=== PATIENT | male | born 2000 | race Two or more races ===

== ENCOUNTER 2022-10-22 11:29 | Inpatient (IN) | payer OTHER, SELFPAY ==
[2022-10-22] VITALS (18 sets, daily range): BP systolic 98–137; BP diastolic 61–94; PULSE 68–112; RESP 17–25; TEMP 36.4–37.2; O2SAT 95–100; BMI 26.3; BMI 28.8
--- NOTE | 2022-10-22 11:29 | ECG_ITS ---
APPROVED REPORT Exam: Resting ECG HR:77 bpm ECG Measurements Heart Rate 77 AXES NJ 130 P 4 QRSd 88 QRS 61 QT 358 T 37 QTc 390 Conclusion SINUS RHYTHM WITH SINUS ARRHYTHMIA EARLY REPOLARIZATION [ST ELEVATION WITH NORMALLY INFLECTED T-WAVE] BORDERLINE ECG UNCONFIRMED REPORT Electronically signed by : Kailash Bowen MD 10/23/2022 20:30:52
--- NOTE | 2022-10-22 11:53 | XR_ITS ---
FINAL REPORT TECHNIQUE: Single view chest CLINICAL HISTORY: Midsternal CHEST PAIN FINDINGS: A single view of the chest was obtained. The heart and mediastinum are within normal limits. Lung volumes are low. The lungs are clear. There is no pneumothorax. Osseous structures are unremarkable. IMPRESSION: No acute cardiopulmonary process. Reviewed, Interpreted and Dictated by Marcie Shultz MD Transcribed by Yajaira Uriarte Authenticated and [facility]
[2022-10-22 12:00] LABS: Basophils # 0.1 K/mm3 (0-0.2); Basophils % 0.4 % (0.1-2.0); Chloride 103 mmol/L (98-107); Eosinophils # 0.4 K/mm3 (0.0-0.4); Eosinophils % 3.5 % (0.1-12.0); Hematocrit 41.9 % (42.0-52.0); Hemoglobin 14.3 g/dL (14.1-18.0); Lymphocytes % 8.8 % (10-50); Mean Corpuscular HGB Conc 34.2 g/dL (31.8-35.4); Mean Corpuscular Hemoglobin 30.9 pg (27.0-31.2); Mean Corpuscular Volume 90.5 fl (80-94); Mean Platelet Volume 7.5 fl (7.4-10.4); Monocytes # 0.6 K/mm3 (0.1-1.0); Monocytes % 5.1 % (1.7-9.3); Neutrophils # 9.2 K/mm3 (1.8-7.8); Neutrophils % 82.1 % (37.0-80.0); Platelet Count 310 K/mm3 (142-424); Red Blood Count 4.63 M/mm3 (4.60-6.20); Red Cell Distribution Width 13.2 % (11.5-17.5); White Blood Count 11.2 K/mm3 (4.5-13.0)
[2022-10-22 12:01] LABS: Potassium 3.7 mmoL/L (3.5-5.1); Sodium 138 mmol/L (136-145)
[2022-10-22 12:03] LABS: Amylase 50 U/L (30-110)
[2022-10-22 12:04] LABS: Anion Gap 13.7 mEq/L (5-15); Blood Urea Nitrogen 15 mg/dl (9-20); Calcium 8.8 mg/dl (8.4-10.2); Carbon Dioxide 25 mmol/L (22.0-30.0); Creatinine Clearance Estimated 146 mL/min (50-200); Estimated Glomerular Filt Rate 123 ml/min (>60); GFR (African American) 149 ML/MIN (>60); Glucose 154 mg/dl (74-100); Lipase 26 U/L (23-300)
[2022-10-22 12:46] LABS: Troponin I 8.83 ng/ml (0.00-0.034)
--- NOTE | 2022-10-22 12:47 | PC.NURSE ---
CRITICAL TROP 8.83, RECEIVED FROM ANTOLIN IN LAB. PT NAME AND R/V. DR MASTERS NOTIFIED AT THIS TIME
[2022-10-22 13:00] LABS: Coronavirus 19, PCR Not Detected (NotDetected); Influenza A, PCR Not Detected (NotDetected); Influenza B, PCR Not Detected (NotDetected)
--- NOTE | 2022-10-22 13:06 | HMH.EDCP ---
Discharge Plan Disposition Patient Disposition: Admitted As Inpatient Condition: Fair Prescriptions Prescriptions: No Action No Known Home Medications Referrals Follow up/Referrals: Provider,Referral, [Primary Care Provider] - See instructions Discharge ED Provider: Jhon Mei Chest Pain HPI General Chief Complaint: Chest Pain Stated Complaint: chest pain Time Seen by Provider: 10/22/22 12:58 Mode of Arrival: Ambulatory Source of Information: Patient Limitations: No Limitations Description of Symptoms (Recalled from ER Triage Doc. by RN): pt states since saturday he has had nausea, vomiting, chest pain, dizziness, and had a near syncopal episode, denies fever, states chest pain is in the center of his chest and radiates down his l arm, also reports back pain History of Present Illness HPI narrative: Patient presents with chest pain that began approximate 930 this morning. He also complains of some associated back discomfort that he had earlier in the day. He denies exacerbating or alleviating symptoms he does note associated dyspnea and diaphoresis and vomiting. He describes pain presently as a 7. Related Data Home Medications Medication Instructions Recorded Confirmed No Known Home Medications 10/22/22 10/22/22 Allergies Allergy/AdvReac Type Severity Reaction Status Date / Time No Known Allergies Allergy Verified 10/22/22 11:52 [facility] Disclaimer: The information contained in this section may have been updated after the patient was seen, as this information can be updated by other users. Medical History (Updated 10/22/22 @ 15:02 by Anita Montanez APRN) Chest pain Elevated troponin Myocarditis Pericarditis Social History (Updated 10/22/22 @ 14:02 by Anita Montanez APRN) Smoking Status: Never smoker alcohol intake: current current occupational status: other Travel in the last 8 weeks: None ROS Obtained: Yes All systems reviewed & no additional complaints except as documented Physical Exam General General appearance: alert and in no apparent distress Head Head exam: atraumatic, normocephalic and normal inspection Eye Eye exam: Present normal appearance, PERRL and EOMI ENT ENT exam: Present normal exam, normal oropharynx, mucous membranes moist, TM's normal bilaterally and normal external ear exam Neck Neck exam: Present normal inspection, full ROM and trachea midline; Absent meningismus or lymphadenopathy Chest Chest inspection: Present other (Mild reproducible chest wall tenderness) Respiratory Respiratory exam: Present normal lung sounds bilaterally; Absent respiratory distress Cardiovascular Cardiovascular exam: Present regular rate and normal rhythm; Absent JVD Abdominal Exam Abdominal exam: Present soft and normal bowel sounds; Absent distention, tenderness or guarding Extremities Exam Extremities exam: Present normal inspection, full ROM and normal capillary refill; Absent calf tenderness Back Exam Back exam: Present normal inspection; Absent tenderness Neurological Exam Neurological exam: Present alert and oriented X3 Psychiatric Psychiatric exam: Present normal affect and normal mood Skin Skin exam: Present warm, dry, intact and normal color Lymphatic Lymphatic Findings: no adenopathy Medical Decision Making Medical Records Medical records reviewed: Yes I reviewed the patient's medical records. Jonny Inquiry Pt receiving controlled substance: No Vital Signs: 10/22/22 11:35 10/22/22 12:05 10/22/22 12:00 Temperature 97.6 F Temperature Source Oral Pulse Rate 74 94 H Pulse Rate [Left Radial] 74 Respiratory Rate 18 24 Blood Pressure 135/85 Blood Pressure [Right Arm] 131/85 Blood Pressure Mean 98 Blood Pressure Mean [Right Arm] 100 Blood Pressure Source [Right Arm] Automatic Cuff Blood Pressure Position [Right Arm] Sitting 02 Sat by Pulse Oximetry 100 100 Oxygen Delivery Method Room Air 10/22/22 12:30 10/22/22
--- NOTE | 2022-10-22 13:17 | PC.NURSE ---
Anita Montanez was in to see pt
--- NOTE | 2022-10-22 13:43 | CA_ITS ---
APPROVED REPORT EXAM: Comprehensive 2D, Doppler, and color-flow Echocardiogram Net Trainer: Samantha Ayers RVT Ht: 5 ft 4 in Wt: 154lbs BSA: 1.75 BP: 135/85 mmHg Indications: CP,ELEVATED TROP 8.8,NEAR SYNCOPE,DIZZINESS 2D Dimensions IVSd 1.44 cm M: 0.6-1.2 LVEF (Visual) 47.50 % PWd 0.90 cm M: 0.6 - 1.2 LA Volume 24.10 mL LVDd 4.85 cm M: 4.2 - 5.9 LA Volume Index 13.77 mL/m2 (M/F) 16-34 LVDs 3.69 cm M: 2.5 - 4.0 LVOT 2.06 cm (M/F) 1.5-2.5 M-Mode Dimensions RVDd 1.46 cm (0.9-2.6) LA Diam 3.43 cm (1.9-4.0) LVDd 5.50 cm (3.5-5.7) Ao Diam 2.96 cm (2.0-3.7) LVDs 3.82 cm (3.5-5.7) IVSd 1.31 cm (0.6-1.1) PWd 0.61 cm (0.6-1.1) EF (Teich) 57.50% FS 30.50% EDV (Teich) 147.40 mL TAPSE 1.49 (<1.7) ESV (Teich) 62.70 mL LV Diastology E Decel Time 157.00 (160-240 msec) E/A Ratio 1.9 MED E' 9.90 (< 7 cm/sec) E'/MED E' Ratio 9.15 (>14) LAT E' 12.40 (<10 cm/sec) E/LAT E' Ratio 7.31 (>14) Aortic Valve AO Peak GR. 6.20 mmHg Mitral Valve MV E Max Obi. 91.00 (40-130 cm/s) MV A Velocity 49.00 (40-130 cm/s) E/A Ratio 1.86 MV Decel. Time 157.00 (160-240 ms) MV PHT 46.00 ms Pulmonary Valve PV Peak Velocity 85.00 (50-150 cm/s) Left Ventricle Left atrium is normal size, left ventricle is normal size, there is preserved left ventricular systolic function, estimated ejection fraction 55% with no regional wall motion abnormality. Diastolic parameters are within normal range. Right Ventricle Right atrium and right ventricular normal size and contractility. Aortic Valve Aortic valve is grossly normal there is no aortic stenosis aortic insufficiency. Mitral Valve Mitral valve is grossly normal, there is trace mitral regurgitation. Tricuspid Valve Tricuspid grossly normal, there is trace tricuspid regurgitation, tricuspid regurgitation jet plus is inadequate for calculation of the right ventricular systolic pressure. Pulmonic Valve Pulmonic valve is poorly visualized. Great Vessels Aortic root is normal size. Inferior vena cava is normal size with normal inspiratory collapse. Pericardium No significant pericardial effusion noted. Conclusion 1. Normal left ventricular size preserved left ventricular systolic function, estimated ejection fraction 55% with no regional wall motion abnormality, diastolic parameters are within normal range. 2. Trace mitral and tricuspid regurgitation. 3. No significant pericardial effusion noted. 4. Inferior vena cava is normal size with normal inspiratory collapse. Electronically signed by : Jayy Mello MD 10/22/2022 17:47:31
--- NOTE | 2022-10-22 13:48 | EXP.CARD.CON ---
History of Present Illness History of Present Illness Consult date: 10/22/22 Requesting physician: Jhon Mei Consult reason: chest pain Chief complaint: chest History of present illness: This is a 30-year-old gentleman who presented to the emergency department complaints of chest pain. He does have an wire stitcher at bedside who is helping to translate for the patient. He states that he had back pain between his shoulder blades that started on Saturday. He states that this persisted throughout the entire weekend and never resolved. He states that he woke up this morning with sudden onset of chest pain that feels like a stabbing sensation and something is sticking him in the chest. It is in the central aspect of his chest with the associated back pain. He states that sometimes it does radiate down his left arm. It is associated with shortness of breath diaphoresis and clamminess. He denies any nausea or vomiting. The patient rates the pain a 7 out of 10 in intensity. It is worse when he is exerting himself. Nothing is helping to improve the pain. The patient does have an elevated troponin on arrival at the emergency department at 8.83. His EKG does show some diffuse ST elevation but there are no reciprocal changes. He denies any fever, chills, nausea, vomiting, diarrhea, PND or orthopnea. [facility] Disclaimer: The information contained in this section may have been updated after the patient was seen, as this information can be updated by other users. Medical History (Updated 10/22/22 @ 15:02 by Anita Montanez APRN) Chest pain Elevated troponin Myocarditis Pericarditis Social History (Updated 10/22/22 @ 14:02 by Anita Montanez APRN) Smoking Status: Never smoker alcohol intake: current current occupational status: other Travel in the last 8 weeks: None Review of Systems Review of Systems Review of systems:: pertinent systems reviewed and negative unless documented below Constitutional Constitutional: Reports system reviewed and no additional complaints, except as documented Eyes Eyes: Reports system reviewed and no additional complaints, except as documented ENT Ears, Nose, Mouth, and Throat: Reports system reviewed and no additional complaints, except as documented *Cardiovascular Cardiovascular: Reports system reviewed and no additional complaints, except as documented, Reports chest pain, Reports chest pain at rest, Reports chest pain with activity, Reports diaphoresis, Reports dyspnea, Reports dyspnea on exertion and Reports radiating jaw, neck or arm pain *Respiratory Respiratory: Reports system reviewed and no additional complaints, except as documented, Reports dyspnea and Reports dyspnea on exertion *Gastrointestinal Gastrointestinal: Reports system reviewed and no additional complaints, except as documented *Genitourinary Genitourinary: Reports system reviewed and no additional complaints, except as documented *Musculoskeletal Musculoskeletal: Reports system reviewed and no additional complaints, except as documented and Reports back pain Integumentary/Breasts Skin/Breast: Reports system reviewed and no additional complaints, except as documented *Neurologic Neurologic: Reports system reviewed and no additional complaints, except as documented Psychiatric Psychiatric: Reports system reviewed and no additional complaints, except as documented Endocrine Endocrine: Reports system reviewed and no additional complaints, except as documented Hematologic/Lymphatic Hematologic/Lymphatic: Reports system reviewed and no additional complaints, except as documented Allergic/Immunologic Allergic/Immunologic: Reports system reviewed and no additional complaints, except as documented Exam Data for Last 24 hours Vital signs and Labs for Last 24 Hours: Temp Pulse Resp BP Pulse Ox 97.6 F 74 24 135/85 100 10/22/22 11:35 10/22/22 12:05 10/22/22 12:00 10/22/22 12:00 10/22/22 12:00 Laboratory Results - la
--- NOTE | 2022-10-22 13:52 | PC.NURSE ---
vascular at bedside for echo
--- NOTE | 2022-10-22 14:23 | PC.NURSE ---
placed call to [facility] for cardiology
--- NOTE | 2022-10-22 14:23 | PC.NURSE ---
Dr hsu and Anita Montanez here talking dr kate advising to send pt to [facility]
--- NOTE | 2022-10-22 15:04 | PC.NURSE ---
Dr Mei speaking to cardiology at [facility]
--- NOTE | 2022-10-22 15:09 | PC.NURSE ---
NO BEDS AVAILABLE AT PT PLACED ON WAITING LIST.
--- NOTE | 2022-10-22 15:12 | PC.NURSE ---
DR MASTERS SPEAKING TO DR GORMAN
--- NOTE | 2022-10-22 15:28 | PC.NURSE ---
pt put his friend on phone pt was advised of plans for admission until has a bed available
--- NOTE | 2022-10-22 15:35 | PC.NURSE ---
BED ASSIGNMENT REQUESTED, ROOM 216SD, ALL STAFF NOTIFIED
--- NOTE | 2022-10-22 15:35 | PC.NURSE ---
called care management for admission
--- NOTE | 2022-10-22 16:36 | PC.NURSE ---
pt friend brought him some food, pt updated to new plans of trying to get pt transferred [facility]
--- NOTE | 2022-10-22 16:42 | PC.NURSE ---
Dr Mei speaking with [facility]
--- NOTE | 2022-10-22 16:46 | PC.NURSE ---
called [facility] for possible transfer
[2022-10-22 16:49] LABS: Erythrocyte Sedimentation Rate 79 mm/hr (0-15)
--- NOTE | 2022-10-22 16:50 | PC.NURSE ---
placed call to [facility] for cardiology and transfer
--- NOTE | 2022-10-22 17:11 | PC.NURSE ---
[facility] on with dr kate for transfer
--- NOTE | 2022-10-22 17:14 | PC.NURSE ---
Dr Pugh accepting, they do not have a bed at this time they will update
--- NOTE | 2022-10-22 17:40 | PC.NURSE ---
spoke with hospitalist who states he is comfortable with pt moving to step down while awaiting bed placement externally
--- NOTE | 2022-10-22 17:47 | PC.NURSE ---
CALLED REPORT TO SHRUTHI SOSA RN
[2022-10-22 17:53] LABS: C-Reactive Protein 275.8 mg/L (0-4)
--- NOTE | 2022-10-22 18:12 | EXP.HP ---
History of Present Illness *Admission Date: 10/22/22 *Reason for visit:: chest pain *History of present illness: Mr. Rebollar is a 30-year-old gentleman who presented to the emergency department complaints of chest pain. History obtained from ER and cardiology notes as well as from patient with the assistance of an civil engineering drafter. He reports that he has had back pain for the past 3 to 4 days that began between his shoulders. It is persisted through the entire weekend without any resolution. Worse with exertion. Woke up this morning with sudden worsening of chest pain that felt like stabbing sensation. Occasional radiation down his left arm. Some intermittent shortness of breath, diaphoresis, sweating. Denies any nausea or vomiting. No syncope. No headache. Rates his pain as a 7 out of 10. No improvement with anything that he is done at home. Noted to have elevated troponins in the ER. Cardiology was consulted. EKG obtained showing diffuse ST elevation. Denies fever, orthopnea. Medicine consulted for admission after attempts made to transfer patient to higher level of care for cardiac MRI per cardiology recommendations. Patient currently on the wait list at [facility] and . On arrival to the floor, patient states the pain is intermittent. Better when he sits forward. No nausea or vomiting. No shortness of breath. Feels dizzy when he sits up. Application Packager used was Freida ID: [id number] via video on iPad. [facility] Disclaimer: The information contained in this section may have been updated after the patient was seen, as this information can be updated by other users. Medical History Chest pain Elevated troponin Myocarditis Pericarditis Family History Family history of heart disease Social History Smoking Status: Never smoker alcohol intake: current current occupational status: unemployed and other Travel in the last 8 weeks: None Review of Systems Review of Systems Review of systems (narrative): 14 point review of systems performed, pertinent positives and negatives as per HPI *Neurologic Neurologic: Reports system reviewed and no additional complaints, except as documented Meds Home Medications and Allergies Home Medications Medication Instructions Recorded Confirmed Type No Known Home Medications 10/22/22 10/22/22 History New Prescriptions to Start Prescriptions: Allergies Allergy/AdvReac Type Severity Reaction Status Date / Time No Known Allergies Allergy Verified 10/22/22 11:52 Exam Data for Last 24 hours Vital signs and Labs for Last 24 Hours: Temp Pulse Resp BP Pulse Ox 98.0 F 68 20 113/70 100 10/22/22 17:48 10/22/22 17:48 10/22/22 17:48 10/22/22 17:48 10/22/22 17:30 Laboratory Results - last 24 hr 10/22/22 11:35: WBC 11.2, RBC 4.63, Hgb 14.3, Hct 41.9 L, MCV 90.5, MCH 30.9, MCHC 34.2, RDW 13.2, Plt Count 310, MPV 7.5, Neut % (Auto) 82.1 H, Lymph % (Auto) 8.8 L, Canyon % (Auto) 5.1, Eos % (Auto) 3.5, Baso % (Auto) 0.4, Neut # (Auto) 9.2 H, Lymph # (Auto) 1.0, Canyon # (Auto) 0.6, Eos # (Auto) 0.4, Baso # (Auto) 0.1 10/22/22 11:35: Sodium 138, Potassium 3.7, Chloride 103, Carbon Dioxide 25, Anion Gap 13.7, BUN 15, Creatinine 0.80, Estimated Creat Clear 146, Estimated GFR 123, Est GFR ( Amer) 149, Glucose 154 H, Calcium 8.8, Troponin I 8.83 H, Amylase 50, Lipase 26 10/22/22 11:35: C-Reactive Protein 275.8 H 10/22/22 12:50: SARS-CoV-2 (PCR) Not detected, Influenza A Untype (PCR) Not detected, Influenza Type B (PCR) Not detected 10/22/22 14:55: Troponin I 18.20 H 10/22/22 15:57: ESR 79 H I & O for Last 24 hours: Intake & Output 10/19/22 10/20/22 10/21/22 10/22/22 23:59 23:59 23:59 23:59 Weight 70 kg Constitutional Constitutional: no acute distress *Routine HEENT Exam Head: Present
--- NOTE | 2022-10-22 19:05 | PC.NURSE ---
window framer used for communication with pt. He is resting at this time in bed. No complaints at this time. VSS. Call light at bedside.
[2022-10-23] VITALS (15 sets, daily range): BP systolic 98–133; BP diastolic 54–81; PULSE 80–120; RESP 16–27; TEMP 36.3–37.9; O2SAT 93–100; BMI 28.8
--- NOTE | 2022-10-23 00:45 | PC.NURSE ---
Updated [facility]. No beds at this time.
--- NOTE | 2022-10-23 04:58 | PC.NURSE ---
No beds available at [facility] at this time.
[2022-10-23 06:41] LABS: Basophils % 0.4 % (0.1-2.0); Eosinophils # 0.5 K/mm3 (0.0-0.4); Eosinophils % 5.2 % (0.1-12.0); Hematocrit 39.3 % (42.0-52.0); Hemoglobin 12.9 g/dL (14.1-18.0); Lymphocytes # 0.9 K/mm3 (0.7-4.5); Mean Corpuscular HGB Conc 32.7 g/dL (31.8-35.4); Mean Corpuscular Volume 91.7 fl (80-94); Mean Platelet Volume 7.5 fl (7.4-10.4); Monocytes # 0.5 K/mm3 (0.1-1.0); Monocytes % 4.8 % (1.7-9.3); Neutrophils # 8.1 K/mm3 (1.8-7.8); Neutrophils % 80.6 % (37.0-80.0); Platelet Count 339 K/mm3 (142-424); Red Blood Count 4.29 M/mm3 (4.60-6.20); Red Cell Distribution Width 13.1 % (11.5-17.5)
[2022-10-23 06:45] LABS: Chloride 105 mmol/L (98-107); Sodium 136 mmol/L (136-145)
[2022-10-23 06:47] LABS: Blood Urea Nitrogen 10 mg/dl (9-20); Creatinine Clearance Estimated 218 mL/min (50-200); Estimated Glomerular Filt Rate 172 ml/min (>60); GFR (African American) 208 ML/MIN (>60)
[2022-10-23 06:48] LABS: Alanine Aminotransferase 107 U/L (12-78); Albumin Level 3.7 g/dl (3.5-5.0); Albumin/Globulin Ratio 1.1 (1.1-1.8); Alkaline Phosphatase 127 U/L (38-126); Aspartate Amino Transferase 107 U/L (17-59); Bilirubin,Total 0.5 mg/dl (0.2-1.3); Calcium 8.3 mg/dl (8.4-10.2); Carbon Dioxide 23 mmol/L (22.0-30.0); Globulin 3.4 g/dL (1.3-3.2); Glucose 119 mg/dl (74-100); Magnesium 2.4 mg/dl (1.6-2.3); Total Protein,Serum 7.1 g/dl (6.3-8.2)
--- NOTE | 2022-10-23 08:29 | PC.NURSE ---
critical lab value received at 0744 trop 8.0. name and value repeated and verified back. 0810 Dr Nielsen notified face to face of critical lab value.
--- NOTE | 2022-10-23 08:49 | PC.NURSE ---
unable to collect urine d/t pt going to the bathroom and not using urinal or specimen cup.
--- NOTE | 2022-10-23 09:46 | CA_ITS ---
APPROVED REPORT EXAM: Comprehensive 2D, Doppler, and color-flow Echocardiogram Chairman & Ceo: LORY Singh, RVS Ht: 5 ft 4 in Wt: 154lbs BSA: 1.75 BP: 135/85 mmHg Indications: CP, Pericarditis, elevated troponins 8-18 2D Dimensions IVSd 1.16 cm LVEF (Visual) 51.80 % PWd 0.88 cm LVDd 5.14 cm LVDs 3.47 cm M-Mode Dimensions LVDd 5.25 cm (3.5-5.7) LVDs 4.25 cm (3.5-5.7) EF (Teich) 39.00% FS 19.00% EDV (Teich) 132.40 mL ESV (Teich) 80.80 mL Conclusion 1. Limited echocardiogram was performed to evaluate left ventricular systolic function. 2. Normal left atrial size, estimated ejection fraction 50% with no regional wall motion abnormality. 3. No significant pericardial effusion noted. Electronically signed by : Jayy Mello MD 10/23/2022 17:36:08
[2022-10-23 10:34] LABS: NT Pro Brain Natriuretic Pep. 1300 pg/mL (0-125)
[2022-10-23 10:39] LABS: Chol/HDL Ratio 4.3 (1-3.5); Cholesterol 160 mg/dl (140-200); HDL Cholesterol 37 mg/dl (40-60); Triglycerides 132 mg/dl (30-150); VLDL Cholesterol 26 mg/dL (0-40)
--- NOTE | 2022-10-23 10:48 | EXP.CARD.PN ---
Subjective Subjective Date: 10/23/22 Time: 10:00 Principal diagnosis: myoarditis Interval history: This is a 30-year-old gentleman who presented to the emergency department complaints of chest pain. The patient does not speak Cuban. We are using an iPad with a machinery repair maintenance supervisor to be able to communicate with the patient. This morning he reports that he is still having mild pain in the center of his chest that is a stabbing sensation. He is still having some mild back pain. He also complains of shortness of breath when he breathes. He states that he still is getting pretty short of breath when he is breathing although this has improved somewhat. He denies radiation to the left arm. He denies any clamminess. He denies any fever, chills, nausea, vomiting, diarrhea, PND or orthopnea. Exam Data for Last 24 hours Vital signs and Labs for Last 24 Hours: Temp Pulse Resp BP Pulse Ox 97.4 F L 105 H 18 133/75 97 10/23/22 08:00 10/23/22 08:41 10/23/22 08:00 10/23/22 08:00 10/23/22 08:41 Laboratory Results - last 24 hr 10/22/22 11:35: WBC 11.2, RBC 4.63, Hgb 14.3, Hct 41.9 L, MCV 90.5, MCH 30.9, MCHC 34.2, RDW 13.2, Plt Count 310, MPV 7.5, Neut % (Auto) 82.1 H, Lymph % (Auto) 8.8 L, Edmunds % (Auto) 5.1, Eos % (Auto) 3.5, Baso % (Auto) 0.4, Neut # (Auto) 9.2 H, Lymph # (Auto) 1.0, Edmunds # (Auto) 0.6, Eos # (Auto) 0.4, Baso # (Auto) 0.1 10/22/22 11:35: Sodium 138, Potassium 3.7, Chloride 103, Carbon Dioxide 25, Anion Gap 13.7, BUN 15, Creatinine 0.80, Estimated Creat Clear 146, Estimated GFR 123, Est GFR ( Amer) 149, Glucose 154 H, Calcium 8.8, Troponin I 8.83 H, Amylase 50, Lipase 26 10/22/22 11:35: C-Reactive Protein 275.8 H 10/22/22 12:50: SARS-CoV-2 (PCR) Not detected, Influenza A Untype (PCR) Not detected, Influenza Type B (PCR) Not detected 10/22/22 14:55: Troponin I 18.20 H 10/22/22 15:57: ESR 79 H 10/22/22 18:26: Troponin I 16.80 H 10/23/22 05:42: WBC 10.0, RBC 4.29 L, Hgb 12.9 L, Hct 39.3 L, MCV 91.7, MCH 30.0, MCHC 32.7, RDW 13.1, Plt Count 339, MPV 7.5, Neut % (Auto) 80.6 H, Lymph % (Auto) 9.0 L, Edmunds % (Auto) 4.8, Eos % (Auto) 5.2, Baso % (Auto) 0.4, Neut # (Auto) 8.1 H, Lymph # (Auto) 0.9, Edmunds # (Auto) 0.5, Eos # (Auto) 0.5 H, Baso # (Auto) 0.0 10/23/22 05:42: Sodium 136, Potassium 4.0, Chloride 105, Carbon Dioxide 23, Anion Gap 12.0, BUN 10 D, Creatinine 0.60 L D, Estimated Creat Clear 218, Estimated GFR 172, Est GFR ( Amer) 208 D, Glucose 119 H D, Calcium 8.3 L, Magnesium 2.4 H, Total Bilirubin 0.5, AST 107 H, ALT 107 H, Alkaline Phosphatase 127 H, Total Protein 7.1, Albumin 3.7, Globulin 3.4 H, Albumin/Globulin Ratio 1.1 10/23/22 05:42: Troponin I 8.00 H 10/23/22 10:05: NT-Pro-B Natriuret Pep 1300 H 10/23/22 10:05: Triglycerides 132, Cholesterol 160, VLDL Cholesterol 26, HDL Cholesterol 37 L, Cholesterol/HDL Ratio 4.3 H I & O for Last 24 hours: Intake & Output 10/20/22 10/21/22 10/22/22 10/23/22 23:59 23:59 23:59 23:59 Intake Total 360 / 360 Output Total 0 / 0 Balance 360 / 360 Weight 173 lb 5 oz 173 lb Narrative: Echocardiogram shows: 1.? Normal left ventricular size preserved left ventricular systolic function, estimated ejection fraction 55% with no regional wall motion abnormality, diastolic parameters are within normal range. 2.? Trace mitral and tricuspid regurgitation. 3.? No significant pericardial effusion noted. 4.? Inferior vena cava is normal size with normal inspiratory collapse. Constitutional Constitutional: no acute distress and average body habitus *Routine HEENT Exam Head: Present normocephalic and atraumatic ENT: Present mucous membranes moist *Routine Neck Exam Neck: Present supple, full ROM and normal carotid upstroke; Absent JVD, carotid bruit or lymphadenopathy *Routine Respiratory Exam Respiratory: Present CTA bilaterally, normal respiratory effort, able to speak in complete sentences and symmetric chest movement *Routine Cardiovascular Exam Cardiovascular: Pr
[2022-10-23 10:50] LABS: Direct LDL Cholesterol 96.92 mg/dL (100-129)
--- NOTE | 2022-10-23 10:52 | PC.NURSE ---
echo at bedside at this time.
--- NOTE | 2022-10-23 12:42 | EXP.ACUTE.PN ---
Subjective *Date: 10/23/22 *Time: 12:42 Interval history: Feeling somewhat better this morning. Denies chest pain, has intermittent back pain. Mild pain with breathing. Denies dizziness or weakness. No nausea or vomiting. Tolerating p.o. intake. Blood pressure stable, heart rate elevated today with tachycardia of 105 on morning rounds. Remains afebrile. Medical Exam Vital signs and Labs for Last 24 Hours: Vital Signs Temp Pulse Pulse Resp BP BP Pulse Ox 10/23/22 12:00 95 H 18 121/57 L 100 10/23/22 10:00 99.2 F 95 H 18 123/81 100 10/23/22 08:08 110 H 10/23/22 08:00 97.4 F L 104 H 18 133/75 98 10/23/22 08:41 105 H 97 10/23/22 06:00 97 H 22 103/64 L 95 10/23/22 06:00 120 H 10/23/22 04:00 101 H 93 L 10/23/22 04:00 98.4 F 10/23/22 04:00 103 H 25 H 112/58 L 96 10/23/22 00:00 110 H 10/22/22 20:00 90 10/23/22 02:00 103 H 24 98/54 L 93 L 10/23/22 00:00 98.6 F 10/23/22 00:00 109 H 27 H 102/62 L 100 10/22/22 20:00 112 H 98 10/22/22 20:40 98.9 F 10/22/22 20:00 92 H 25 H 98/61 L 100 10/22/22 18:21 97.5 F L 93 H 23 116/79 100 10/22/22 17:48 98.0 F 68 20 113/70 10/22/22 17:30 87 113/70 100 10/22/22 17:01 104 H 22 113/94 H 98 10/22/22 16:30 85 109/66 L 99 10/22/22 16:00 77 128/78 98 10/22/22 15:30 89 122/77 97 10/22/22 15:00 84 110/68 100 10/22/22 14:30 90 118/69 99 10/22/22 14:00 76 20 107/64 L 100 10/22/22 13:30 70 18 116/76 97 10/22/22 13:00 87 19 137/82 100 Intake and Output 10/22/22 10/23/22 10/23/22 23:59 07:59 15:59 Intake Total 360 / 360 Output Total 0 / 0 Balance 360 / 360 Intake: Intake, Oral Amount 360 / 360 Output: Output, Urine Amount 0 / 0 Other: Number of Voids 1 Number of Unmeasured Voids 1 Number of Bowel Movements 1 Weight 78.613 kg 78.471 kg Patient Weight 10/23/22 23:59 Weight 78.471 kg Laboratory Results - last 24 hr 10/22/22 11:35: Troponin I 8.83 H 10/22/22 11:35: C-Reactive Protein 275.8 H 10/22/22 12:50: SARS-CoV-2 (PCR) Not detected, Influenza A Untype (PCR) Not detected, Influenza Type B (PCR) Not detected 10/22/22 14:55: Troponin I 18.20 H 10/22/22 15:57: ESR 79 H 10/22/22 18:26: Troponin I 16.80 H 10/23/22 05:42: WBC 10.0, RBC 4.29 L, Hgb 12.9 L, Hct 39.3 L, MCV 91.7, MCH 30.0, MCHC 32.7, RDW 13.1, Plt Count 339, MPV 7.5, Neut % (Auto) 80.6 H, Lymph % (Auto) 9.0 L, [place] % (Auto) 4.8, Eos % (Auto) 5.2, Baso % (Auto) 0.4, Neut # (Auto) 8.1 H, Lymph # (Auto) 0.9, [place] # (Auto) 0.5, Eos # (Auto) 0.5 H, Baso # (Auto) 0.0 10/23/22 05:42: Sodium 136, Potassium 4.0, Chloride 105, Carbon Dioxide 23, Anion Gap 12.0, BUN 10 D, Creatinine 0.60 L D, Estimated Creat Clear 218, Estimated GFR 172, Est GFR ( Amer) 208 D, Glucose 119 H D, Calcium 8.3 L, Magnesium 2.4 H, Total Bilirubin 0.5, AST 107 H, ALT 107 H, Alkaline Phosphatase 127 H, Total Protein 7.1, Albumin 3.7, Globulin 3.4 H, Albumin/Globulin Ratio 1.1 10/23/22 05:42: Troponin I 8.00 H 10/23/22 10:05: NT-Pro-B Natriuret Pep 1300 H 10/23/22 10:05: Triglycerides 132, Cholesterol 160, LDL Cholesterol Direct 96.92 L, VLDL Cholesterol 26, HDL Cholesterol 37 L, Cholesterol/HDL Ratio 4.3 H I & O for Labs for Last 24 Hours: Intake & Output 10/20/22 10/21/22 10/22/22 10/23/22 23:59 23:59 23:59 23:59 Intake Total 360 / 360 Output Total 0 / 0 Balance 360 / 360 Weight 78.613 kg 78.471 kg Constitutional: Present no acute distress and average body habitus Head: Present atraumatic and normocephalic ENT: Present normal exam Respiratory: Present normal respiratory effort; Absent accessory muscle use, rhonchi, wheezes or crackles Cardiac: Present Reg Rate and Rhythm; Absent No Murmur Comment:: no rubs GI: Present soft and normal bowel sounds; Absent distention o
[2022-10-23 16:25] LABS: Amphetamine/Metha Screen,Urine Negative ng/ml (<1000); Barbiturates Screen,Urine Negative ng/ml (<200)
[2022-10-23 16:26] LABS: Benzodiazepines Screen,Urine Negative ng/ml (<200); Cannabinoid Screen,Urine Negative ng/ml (<50)
[2022-10-23 16:27] LABS: Cocaine Screen,Urine Negative ng/ml (<300)
[2022-10-23 16:28] LABS: Methadone Screen,Urine Negative ng/ml (<300); Opiate Screen,Urine Negative ng/ml (<300)
[2022-10-23 16:29] LABS: Phencyclidine Screen,Urine Negative ng/ml (<25)
--- NOTE | 2022-10-23 16:57 | PC.NURSE ---
pt alert and oriented t/o shift. pt has been up as sarah with no assist. pt did sit up in the chair for part of the day. visitor brought patient lunch. pt c/o pain on inspiration this am but has remained pain free t/o the day. pt remains on waitlist at and [facility]. nurses assistant has been used t/o all care today. reinforcement needed on new medications, pt was given print out on meds in Belarusian.
--- NOTE | 2022-10-23 17:27 | PC.NURSE ---
Gisela from [facility] called to update that pt is still on list, but no bed is currently available. [place], inpatient RN notified.
--- NOTE | 2022-10-23 23:55 | PC.NURSE ---
Updated [facility] on pt status, no beds available at this time
[2022-10-24] VITALS (13 sets, daily range): BP systolic 107–133; BP diastolic 61–87; PULSE 63–90; RESP 16–17; TEMP 36.6–37.8; O2SAT 98–100; BMI 28.0
[2022-10-24 06:33] LABS: Basophils # 0.1 K/mm3 (0-0.2); Basophils % 0.6 % (0.1-2.0); Eosinophils # 0.6 K/mm3 (0.0-0.4); Eosinophils % 6.3 % (0.1-12.0); Hematocrit 41.1 % (42.0-52.0); Hemoglobin 13.4 g/dL (14.1-18.0); Lymphocytes # 1.2 K/mm3 (0.7-4.5); Lymphocytes % 12.7 % (10-50); Mean Corpuscular HGB Conc 32.6 g/dL (31.8-35.4); Mean Corpuscular Hemoglobin 30.1 pg (27.0-31.2); Mean Corpuscular Volume 92.3 fl (80-94); Mean Platelet Volume 7.4 fl (7.4-10.4); Monocytes # 0.5 K/mm3 (0.1-1.0); Monocytes % 5.4 % (1.7-9.3); Neutrophils # 7.3 K/mm3 (1.8-7.8); Neutrophils % 75.1 % (37.0-80.0); Platelet Count 404 K/mm3 (142-424); Red Blood Count 4.45 M/mm3 (4.60-6.20); Red Cell Distribution Width 13.3 % (11.5-17.5); White Blood Count 9.8 K/mm3 (4.5-13.0)
[2022-10-24 06:41] LABS: Alanine Aminotransferase 123 U/L (12-78); Albumin Level 3.9 g/dl (3.5-5.0); Albumin/Globulin Ratio 1.1 (1.1-1.8); Alkaline Phosphatase 138 U/L (38-126); Anion Gap 8.3 mEq/L (5-15); Aspartate Amino Transferase 70 U/L (17-59); Bilirubin,Total 0.4 mg/dl (0.2-1.3); Blood Urea Nitrogen 15 mg/dl (9-20); Calcium 8.8 mg/dl (8.4-10.2); Carbon Dioxide 25 mmol/L (22.0-30.0); Chloride 107 mmol/L (98-107); Creatinine Clearance Estimated 182 mL/min (50-200); Estimated Glomerular Filt Rate 144 ml/min (>60); GFR (African American) 174 ML/MIN (>60); Globulin 3.5 g/dL (1.3-3.2); Glucose 111 mg/dl (74-100); Magnesium 2.7 mg/dl (1.6-2.3); Potassium 4.3 mmoL/L (3.5-5.1); Sodium 136 mmol/L (136-145); Total Protein,Serum 7.4 g/dl (6.3-8.2)
[2022-10-24 06:48] LABS: C-Reactive Protein 128.7 mg/L (0-4)
[2022-10-24 06:54] LABS: Troponin I 3.89 ng/ml (0.00-0.034)
[2022-10-24 08:20] LABS: Erythrocyte Sedimentation Rate 55 mm/hr (0-15)
--- NOTE | 2022-10-24 08:59 | EXP.PN ---
Subjective *Date: 10/24/22 *Time: 17:54 Interval history: Date of service October 24, 2022 The patient reports no further chest pain. He reports that he is feeling better. He does not identify with a significant illness as a child or teenager. Nursing staff report that he remains afebrile with stable vital signs and saturating appropriately on room air. His heart rates have improved. He is pending transfer to [facility]. Cardiology continues to follow. His labs have been reviewed and discussed. Exam Data for Last 24 hours Vital signs and Labs for Last 24 Hours: Temp Pulse Resp BP Pulse Ox 98.7 F 83 16 133/68 100 10/24/22 07:30 10/24/22 07:30 10/24/22 07:30 10/24/22 07:30 10/24/22 07:30 Laboratory Results - last 24 hr 10/22/22 10:00: Urine Opiates Screen Negative, Urine Methadone Screen Negative, Ur Barbituates Screen Negative, Ur Phencyclidine Scrn Negative, Ur Amphetamines Screen Negative, U Benzodiazepines Scrn Negative, Urine Cocaine Screen Negative, U Marijuana (THC) Screen Negative 10/23/22 10:05: NT-Pro-B Natriuret Pep 1300 H 10/23/22 10:05: Triglycerides 132, Cholesterol 160, LDL Cholesterol Direct 96.92 L, VLDL Cholesterol 26, HDL Cholesterol 37 L, Cholesterol/HDL Ratio 4.3 H 10/24/22 05:45: WBC 9.8, RBC 4.45 L, Hgb 13.4 L, Hct 41.1 L, MCV 92.3, MCH 30.1, MCHC 32.6, RDW 13.3, Plt Count 404, MPV 7.4, Neut % (Auto) 75.1, Lymph % (Auto) 12.7, [place] % (Auto) 5.4, Eos % (Auto) 6.3, Baso % (Auto) 0.6, Neut # (Auto) 7.3, Lymph # (Auto) 1.2, [place] # (Auto) 0.5, Eos # (Auto) 0.6 H, Baso # (Auto) 0.1, ESR 55 H 10/24/22 05:45: Sodium 136, Potassium 4.3, Chloride 107, Carbon Dioxide 25, Anion Gap 8.3, BUN 15 D, Creatinine 0.70, Estimated Creat Clear 182, Estimated GFR 144, Est GFR ( Amer) 174, Glucose 111 H, Calcium 8.8, Magnesium 2.7 H D, Total Bilirubin 0.4, AST 70 H D, ALT 123 H, Alkaline Phosphatase 138 H, Troponin I 3.89 H, C-Reactive Protein 128.7 H, Total Protein 7.4, Albumin 3.9, Globulin 3.5 H, Albumin/Globulin Ratio 1.1 I & O for Last 24 hours: Intake & Output 10/21/22 10/22/22 10/23/22 10/24/22 23:59 23:59 23:59 23:59 Intake Total 1080 / 1080 600 / 600 Output Total 250 / 250 0 / 0 Balance 830 / 830 600 / 600 Weight 78.613 kg 78.471 kg 76.385 kg Constitutional Constitutional: no acute distress and cooperative *Routine HEENT Exam Head: Present normocephalic Eye: Present EOMI and PERRL ENT: Present mucous membranes moist *Routine Neck Exam Neck: Present supple; Absent lymphadenopathy *Routine Respiratory Exam Respiratory: Present CTA bilaterally, normal respiratory effort and symmetric chest movement *Routine Cardiovascular Exam Cardiovascular: Present RRR and gallop *Routine Abdominal Exam Abdominal: Present soft and normoactive bowel sounds; Absent tenderness *Routine Extremities Exam Extremities: Absent cyanosis, clubbing or edema *Routine Skin Exam Skin: Present warm; Absent rash *Routine Neurological Exam Neurological: Present alert, oriented X3, moving all extremities, normal tone, vision grossly intact, hearing grossly intact and normal speech Routine Psychiatric Exam Psychiatric: Present normal affect, normal thought process, cooperative, good insight and good judgment Assessment and Plan *Assessment and plan (1) Pericarditis: Status: Acute Category: Medical Code(s): I31.9 - Disease of pericardium, unspecified (2) Myocarditis: Status: Acute Category: Medical Code(s): I51.4 - Myocarditis, unspecified (3) Chest pain: Status: Acute Category: Medical Code(s): R07.9 - Chest pain, unspecified (4) Elevated troponin: Status: Acute Category: Medical Code(s): R77.8 - Other specified abnormalities of plasma proteins Plan Mr. Rebollar is a previously healthy 22-year-old male who presented with chest pain and elevated troponins. Cardiology consulted. Concern for pericarditis/myocarditis/perimyoca
--- NOTE | 2022-10-24 09:22 | CA_ITS ---
APPROVED REPORT EXAM: Limited 2D Echocardiogram Sack Keeper: Samantha Ayers RVT Ht: 5 ft 4 in Wt: 168lbs BSA: 1.82 BP: 133/68 mmHg Indications: ELEVATED BNP,[place],SOA,CP,? MYPCARDITIS/PERICARDITIS 2D Dimensions LVOT 1.99 cm (M/F) 1.5-2.5 M-Mode Dimensions RVDd 2.20 cm (0.9-2.6) LA Diam 3.62 cm (1.9-4.0) LVDd 3.80 cm (3.5-5.7) Ao Diam 2.34 cm (2.0-3.7) LVDs 2.81 cm (3.5-5.7) IVSd 0.91 cm (0.6-1.1) PWd 0.91 cm (0.6-1.1) EF (Teich) 51.90% FS 26.10% EDV (Teich) 62.00 mL ESV (Teich) 29.80 mL Conclusion 1. Limited echocardiogram was performed to evaluate left ventricular systolic function. Estimated ejection fraction is 45 to 50% with no obvious regional wall motion abnormality. 2. No significant pericardial effusion noted. Electronically signed by : Jayy Mello MD 10/25/2022 06:32:07
[2022-10-24 09:30] LABS: D-Dimer 0.84 ug/mL (0.0-0.5)
[2022-10-24 09:32] LABS: Thyroid Stimulating Hormone 2.83 uIU/mL (0.465-4.68)
--- NOTE | 2022-10-24 09:49 | EXP.CARD.PN ---
Subjective Subjective Date: 10/24/22 Time: 08:30 Principal diagnosis: myoarditis Interval history: This is a 22-year-old gentleman who presented to the emergency department with chest pain. The patient does not speak Albanian. Today Dr. Buck served as the family therapist for the patient. This morning he states that he is chest pain-free. His shortness of breath has significantly improved. He denies any edema. He denies any fever, chills, nausea, vomiting, diarrhea, PND or orthopnea. His vital signs are stable and he appears to be in no distress this morning. Exam Data for Last 24 hours Vital signs and Labs for Last 24 Hours: Temp Pulse Resp BP Pulse Ox 98.7 F 80 16 133/68 100 10/24/22 07:30 10/24/22 08:00 10/24/22 07:30 10/24/22 07:30 10/24/22 07:30 Laboratory Results - last 24 hr 10/22/22 10:00: Urine Opiates Screen Negative, Urine Methadone Screen Negative, Ur Barbituates Screen Negative, Ur Phencyclidine Scrn Negative, Ur Amphetamines Screen Negative, U Benzodiazepines Scrn Negative, Urine Cocaine Screen Negative, U Marijuana (THC) Screen Negative 10/23/22 10:05: NT-Pro-B Natriuret Pep 1300 H 10/23/22 10:05: Triglycerides 132, Cholesterol 160, LDL Cholesterol Direct 96.92 L, VLDL Cholesterol 26, HDL Cholesterol 37 L, Cholesterol/HDL Ratio 4.3 H 10/24/22 05:45: WBC 9.8, RBC 4.45 L, Hgb 13.4 L, Hct 41.1 L, MCV 92.3, MCH 30.1, MCHC 32.6, RDW 13.3, Plt Count 404, MPV 7.4, Neut % (Auto) 75.1, Lymph % (Auto) 12.7, [place] % (Auto) 5.4, Eos % (Auto) 6.3, Baso % (Auto) 0.6, Neut # (Auto) 7.3, Lymph # (Auto) 1.2, [place] # (Auto) 0.5, Eos # (Auto) 0.6 H, Baso # (Auto) 0.1, ESR 55 H 10/24/22 05:45: Sodium 136, Potassium 4.3, Chloride 107, Carbon Dioxide 25, Anion Gap 8.3, BUN 15 D, Creatinine 0.70, Estimated Creat Clear 182, Estimated GFR 144, Est GFR ( Amer) 174, Glucose 111 H, Calcium 8.8, Magnesium 2.7 H D, Total Bilirubin 0.4, AST 70 H D, ALT 123 H, Alkaline Phosphatase 138 H, Troponin I 3.89 H, C-Reactive Protein 128.7 H, Total Protein 7.4, Albumin 3.9, Globulin 3.5 H, Albumin/Globulin Ratio 1.1 I & O for Last 24 hours: Intake & Output 10/21/22 10/22/22 10/23/22 10/24/22 23:59 23:59 23:59 23:59 Intake Total 1080 / 1080 600 / 600 Output Total 250 / 250 0 / 0 Balance 830 / 830 600 / 600 Weight 173 lb 5 oz 173 lb 168 lb 6.4 oz Narrative: Limited echocardiogram shows: 1.? Limited echocardiogram was performed to evaluate left ventricular systolic function. 2.? Normal left atrial size, estimated ejection fraction 50% with no regional wall motion abnormality. 3.? No significant pericardial effusion noted. Constitutional Constitutional: no acute distress and average body habitus *Routine HEENT Exam Head: Present normocephalic and atraumatic ENT: Present mucous membranes moist *Routine Neck Exam Neck: Present supple, full ROM and normal carotid upstroke; Absent JVD, carotid bruit or lymphadenopathy *Routine Respiratory Exam Respiratory: Present CTA bilaterally, normal respiratory effort, able to speak in complete sentences and symmetric chest movement *Routine Cardiovascular Exam Cardiovascular: Present RRR, Normal S1, Normal S2 and gallop; Absent murmur *Routine Abdominal Exam Abdominal: Present soft and normoactive bowel sounds; Absent tenderness, distended or organomegaly *Routine Extremities Exam Extremities: Present full ROM, pulses intact and normal capillary refill; Absent cyanosis, clubbing or edema *Routine Skin Exam Skin: Present intact and warm; Absent erythema *Routine Neurological Exam Neurological: Present alert, oriented X3 and CN II-XII intact; Absent sensory deficit or motor deficit Routine Psychiatric Exam Psychiatric: Present normal affect Progress Note: A&P Assessment and plan (1) Myocarditis: Status: Acute (2) Chest pain: Status: Acute (3) Elevated troponin: Status: Acute (4) Shortness of Breath: Status: Acute Assessment and Plan Assessment and Plan f
--- NOTE | 2022-10-24 12:43 | PC.NURSE ---
LATE ENTRY: 0921: SECOND DOSE OF BISOPROLOL 5MG GIVEN PER ORDER TO ATTEMPT TO LOWER HR FOR CTA CORONARY. 1117: THIRD DOSE OF BISOPROLOL 5MG GIVEN PER ORDER (Geetha TOLBERT) IN ANOTHER ATTEMPT TO LOWER HR FOR CTA. CONTINUING TO MONITOR HR, CURRENTLY 72. CONTACTED A BLACK AND LEFT MESSAGE AT THIS TIME TO UPDATE ON HR. AWAITING CALL BACK.
--- NOTE | 2022-10-24 13:45 | PC.NURSE ---
VITA AT BEDSIDE ASSESSING PT. STATES TO TAKE PT DOWN TO CTA. IF NEEDED, OKAY TO PUSH METOPROLOL 5MG X3, WAITING 2 MINUTES IN BETWEEN IF NEEDED.
--- NOTE | 2022-10-24 14:47 | PC.NURSE ---
TOOK PT TO CT. TOLERATED SCAN WELL. DID FEEL A LITTLE NAUSEAS AND DIZZY AFTERWARDS. ASKED PT IF I COULD GET HIM ANYTHING AND HE JUST WANTED WATER AND TO LAY DOWN.
--- NOTE | 2022-10-24 15:57 | PC.NURSE ---
A&OX4. TOLERATING RA WELL. HAS HAD NO OTHER NEEDS OR C/O THIS SHIFT. HAS BEEN RESTING IN BED. UP INDEPENDENTLY IN ROOM. VSS.
[2022-10-25] VITALS: PULSE 70
[2022-10-25 04:00] VITALS: BP 107/65; PULSE 66; PULSE 68; RESP 16; TEMP 36.5; O2SAT 94; BMI 27.8
[2022-10-25 07:32] VITALS: BP 141/77; PULSE 74; RESP 16; TEMP 36.5; O2SAT 99
--- NOTE | 2022-10-25 10:46 | EXP.CARD.PN ---
Subjective Subjective Date: 10/25/22 Time: 10:15 Principal diagnosis: myoarditis Interval history: This is a 22-year-old gentleman who presented to the emergency department with chest pain. The patient does not speak Maori. The video remote interpreting iPad was used for translation with the patient this morning. He denies any chest pain or pressure. He does report that he is still having some slight shortness of breath especially late at night and early in the morning. He states that this is mostly when he is breathing heavily. He states that this has improved though. He denies any edema. He denies any fever, chills, nausea, vomiting, diarrhea, PND orthopnea. His vital signs are stable. He appears to be in no distress. Exam Data for Last 24 hours Vital signs and Labs for Last 24 Hours: Temp Pulse Resp BP Pulse Ox 97.7 F 74 16 141/77 H 99 10/25/22 07:32 10/25/22 07:32 10/25/22 07:32 10/25/22 07:32 10/25/22 07:32 I & O for Last 24 hours: Intake & Output 10/22/22 10/23/22 10/24/22 10/25/22 23:59 23:59 23:59 23:59 Intake Total 1080 / 1080 1500 / 1500 360 / 360 Output Total 250 / 250 200 / 200 0 / 0 Balance 830 / 830 1300 / 1300 360 / 360 Weight 173 lb 5 oz 173 lb 168 lb 6.4 oz 167 lb 5 oz Narrative: Echocardiogram shows: 1.? Limited echocardiogram was performed to evaluate left ventricular systolic function.? Estimated ejection fraction is 45 to 50% with no obvious regional wall motion abnormality. 2.? No significant pericardial effusion noted. CT angio of the coronary arteries shows: No coronary calcification noted, visualized portions of the coronary arteries are normal. There are many statements that were not interpretable due to motion artifact, see official report. No significant noncoronary cardiac findings in particular normal cardiac chambers, and on coronary vessels in the [id number] and unremarkable pericardium. There is pulmonary edema and airspace disease in the bilateral lower lobes. Constitutional Constitutional: no acute distress and average body habitus *Routine HEENT Exam Head: Present normocephalic and atraumatic ENT: Present mucous membranes moist *Routine Neck Exam Neck: Present supple, full ROM and normal carotid upstroke; Absent JVD, carotid bruit or lymphadenopathy *Routine Respiratory Exam Respiratory: Present CTA bilaterally, normal respiratory effort, able to speak in complete sentences and symmetric chest movement *Routine Cardiovascular Exam Cardiovascular: Present RRR, Normal S1 and Normal S2 (split S2); Absent murmur *Routine Abdominal Exam Abdominal: Present soft and normoactive bowel sounds; Absent tenderness, distended or organomegaly *Routine Extremities Exam Extremities: Present full ROM, pulses intact and normal capillary refill; Absent cyanosis, clubbing or edema *Routine Skin Exam Skin: Present intact and warm; Absent erythema *Routine Neurological Exam Neurological: Present alert, oriented X3 and CN II-XII intact; Absent sensory deficit or motor deficit Routine Psychiatric Exam Psychiatric: Present normal affect Progress Note: A&P Assessment and plan (1) Myocarditis: Status: Acute (2) Chest pain: Status: Acute (3) Elevated troponin: Status: Acute (4) Shortness of Breath: Status: Acute (5) Pulmonary edema: Status: Acute Assessment and Plan Assessment and Plan for All Diagnoses:: Plan: 1. The patient presented to the emergency department complaints of chest pain. He did have an elevated troponin at 8.83. His troponin max was 18.20. With his troponin down to 3.89 yesterday morning. The patient was also having shortness of breath especially with inspiration. The patient was diagnosed with myocarditis. This is likely viral myocarditis. 2. CTA of the coronary arteries showed no coronary calcification. The visualized portions of the coronary arteries appear normal. He did have pulmonary edema and airspace diseas
[2022-10-25 11:22] VITALS: BP 119/51; PULSE 56; RESP 16; TEMP 37.2; O2SAT 97
--- NOTE | 2022-10-25 11:37 | EXP.DC.SUM ---
General Admission date:: 10/22/22 Discharge date: 10/25/22 HPI HPI HPI: Mr. Rebollar is a 30-year-old gentleman who presented to the emergency department complaints of chest pain. History obtained from ER and cardiology notes as well as from patient with the assistance of an milker machine. He reports that he has had back pain for the past 3 to 4 days that began between his shoulders. It is persisted through the entire weekend without any resolution. Worse with exertion. Woke up this morning with sudden worsening of chest pain that felt like stabbing sensation. Occasional radiation down his left arm. Some intermittent shortness of breath, diaphoresis, sweating. Denies any nausea or vomiting. No syncope. No headache. Rates his pain as a 7 out of 10. No improvement with anything that he is done at home. Noted to have elevated troponins in the ER. Cardiology was consulted. EKG obtained showing diffuse ST elevation. Denies fever, orthopnea. Medicine consulted for admission after attempts made to transfer patient to higher level of care for cardiac MRI per cardiology recommendations. Patient currently on the wait list at [facility]. On arrival to the floor, patient states the pain is intermittent. Better when he sits forward. No nausea or vomiting. No shortness of breath. Feels dizzy when he sits up. Sales Enablement Lead used was Freida ID: [id number] via video on iPad. Hospital Course Hospital Course Hospital Course: The patient was admitted to the medical unit with continuous telemetry and pulse oximetry monitoring. Cardiology was consulted. His laboratory studies and inflammatory markers including troponin were trended. His laboratory studies remained stable his inflammatory markers improved and his troponin trend was downward. An echocardiogram identified no concerns of pericarditis with an EF 45%. Cardiology recommended to proceed with a CTA of the coronary arteries with improved heart rate control. CT of the coronary arteries identified no aneurysms, congenital anomalies or stenotic lesions. His chest imaging did identify pulmonary edema and he received loop diuretic therapy and was maintained on beta-juli therapy and ARB therapy. The patient identified improvement and inquired about discharge planning. He will be discharged home to minimize physical activity until follow-up with his knot bumper. He will be discharged on beta-juli therapy, loop diuretic therapy and ARB therapy. He is scheduled to see the heart doctor on October 29 with repeat laboratory studies planned. I spent 35 minutes in [id number] time with the patient and nursing staff concerning the discharge process. We discussed the admitting diagnoses and hospital course. We discussed identified improvement and the patient's desire to be discharged. We reviewed inpatient studies and imaging. The patient voiced understanding on the importance of follow-up with his primary care provider and specialist(s). The patient plans to be compliant with the medication regimen prescribed and follow-up appointments. He understands that he can return to the emergency department with any sudden changes or concerns. Exam Data for Last 24 hours Vital signs and Labs for Last 24 Hours: Temp Pulse Resp BP Pulse Ox 99.0 F 56 L 16 119/51 L 97 10/25/22 11:22 10/25/22 11:22 10/25/22 11:22 10/25/22 11:22 10/25/22 11:22 I & O for Last 24 hours: Intake & Output 10/22/22 10/23/22 10/24/22 10/25/22 23:59 23:59 23:59 23:59 Intake Total 1080 / 1080 1500 / 1500 360 / 360 Output Total 250 / 250 200 / 200 0 / 0 Balance 830 / 830 1300 / 1300 360 / 360 Weight 78.613 kg 78.471 kg 76.385 kg 75.892 kg Constitutional Constitutional: no acute distress and cooperative *Routine HEENT Exam Head: Present normocephalic Eye: Present EOMI and PERRL ENT: Present mucous membranes moist *Routine Neck Exam Neck: Present supple; Absent lymphadenopathy *Routine
--- NOTE | 2022-10-25 12:11 | P.CONPHA_ITS ---
Pharmacy Intervention Comments: Discussed discharge medications with patient using video remote lang interpreter. Patient verbalized understanding and had no questions at this time.
--- NOTE | 2022-10-25 12:11 | HMH.PHAINT1 ---
Pharmacy Intervention Comments: Discussed discharge medications with patient using video remote diplomatic interpreter/translator. Patient verbalized understanding and had no questions at this time.
--- NOTE | 2022-10-25 15:02 | PC.NURSE ---
Pt educated by this nurse and pharmacy about condition and medications. Meds to beds delivered. pt left floor accompanied by staff in and family.
== END 2022-10-25 15:00 | disposition home or self-care (01) | DRG 314 ==
LOC: ER 15:28 → 2ND 17:51
PROVIDERS: Family Medicine; Nurse Practitioner Family; Admitting Provider Internal Medicine Adolescent Medicine; Emergency Provider Emergency Medicine; Visit Provider Internal Medicine Adolescent Medicine
DX: I51.4 Myocarditis, unspecified (principal); I50.21 Acute systolic (congestive) heart failure; I30.9 Acute pericarditis, unspecified
CPT/HCPCS: 36415; 71045; 75574; 80048; 80053; 80061; 80305; 82150; 83690; 83735; 83880; 84443; 84484; 85025; 85378; 85651; 86140; 93005; 93306; 93308; 99285; C9803; Q9967; U0003; U0005

== ENCOUNTER → 2022-10-29 15:29 | Outpatient (CLI) | payer OTHER, SELFPAY | PROVIDERS: Visit Provider Internal Medicine | DX: I50.21 Acute systolic (congestive) heart failure (principal); R06.09 Other forms of dyspnea | CPT/HCPCS: 93308 ==